=== PATIENT | female | born 1960 | race Caucasian/White ===

== ENCOUNTER → 2020-12-23 | Outpatient (CLI) | payer OTHER ==
[2014-03-12 15:02] VITALS: BP 113/63
--- NOTE | 2020-12-23 15:48 | RAD ---
US DPLX CAROTID BILAT History: CAROTID STENOSIS Multiple grayscale, color, and duplex spectral analysis waveform sonographic images were acquired of the carotid, subclavian, and vertebral arteries. Comparison: None Findings: RIGHT SIDE: Peak systolic flow velocity of the distal CCA is 112 cm/sec. Peak systolic flow velocity of the ICA is 127 cm/sec. The ICA/CCA ratio is 1.1. Peak end diastolic flow velocity of the ICA is 50 cm/sec. The peak systolic velocity of the ECA is 124 cm/sec. Atherosclerotic plaque formation is identified. LEFT SIDE: Peak systolic flow velocity of the distal CCA is 127 cm/sec. Peak systolic flow velocity of the ICA is 249 cm/sec. The ICA/CCA ratio is 2.0. Peak end diastolic flow velocity of the ICA is 87 cm/sec. Peak systolic flow velocity of the ECA is 143 cm/sec. Atherosclerotic plaque formation is identified. Vertebral arteries: Bilateral vertebral arteries demonstrate antegrade flow. Impression: Atherosclerosis of the cervical ICAs with velocity on the left consistent with greater than 70 percen t stenosis, and velocity on the right consistent with 50-69 percent stenosis. PQRS Compliance Statement - Stenosis calculations for carotid ultrasound studies are derived from kan idated velocity criteria which are known to correlate with the NASCET methodology. Electronically signed by: Shaun Joya MD (12/23/2020 3:46 PM) [id number]
== END ==
LOC: US 12:38
PROVIDERS: ATTEND Family Medicine
DX: I65.23 Occlusion and stenosis of bilateral carotid arteries (principal)
CPT/HCPCS: 93880